=== PATIENT | male | born 2000 | race Caucasian/White ===

== ENCOUNTER 2020-03-25 13:54 | Emergency (ER) | payer SELFPAY ==
[~2020-03-25] VITALS: Ht 175.3 cm; Wt 68.0 kg
--- NOTE | 2020-03-25 14:19 | NUR ---
[email or web address], medical screening exam in progress
[2020-03-25] MEDS ORDERED: NEOMY/BACITRA/POLYMYXIN B OINT UD PACKET TP ONE ×2 (14:30→14:39)
[2020-03-25] MEDS ORDERED: LIDOCAINE HCL 1% 20 ML VIAL TP ONE (14:30)
[2020-03-25] MEDS ORDERED: SULFAMETH/TRIMETH 800/160 MG TABLET PO ONE (14:30)
[2020-03-25] MEDS ORDERED: SULFAMETH/TRIMETH 800/160 MG TABLET ONE (14:39)
--- NOTE | 2020-03-25 14:43 | NUR ---
Patient given written and verbal discharge instructions. Patient verbalizes understanding of instructions. Patient is ambulatory with brisk steady gait. Patient refuses offer of [facility] placement. Patient was given a list of available shelters in surrounding area.
== END 2020-03-25 14:44 | disposition home or self-care (01) ==
LOC: ER 14:08
DX: L02.511 Cutaneous abscess of right hand (principal); S61.23 Puncture wound without foreign body of finger without damage to nail; W26.9XXS Contact with unspecified sharp object(s), sequela
CPT/HCPCS: 26010; 99283; J3490; A4663